=== PATIENT | female | born 1990 | race Hispanic/Latino ===

== ENCOUNTER 2018-12-31 10:04 | Emergency (ER) | payer MEDICARE ==
--- NOTE | 2018-12-31 10:51 | Emergency Department Report ---
ED Chest Pain HPI - General Chief Complaint: Chest Pain Stated Complaint: CHEST PAIN Time Seen by Provider: 12/31/18 10:31 Source: patient, EMS (EMS notes not available at time of chart dictation), RN notes reviewed, old records reviewed Mode of arrival: Stretcher Limitations: Other (patient developmentally delayed. The patient is a poor historian) - History of Present Illness Initial Comments: This is a 28-year-old female. This patient is not known to this provider previously. As per enclosed documentation, her past medical history includes developmental delay, suicidality, ADHD, bipolar Patient was brought into another hospital yesterday, [facility], for suicidality, and was medically cleared for psychiatric placement. Today, the patient complains of central chest wall pain, that started approximately 2 hours ago, and does not endorse vomiting, diaphoresis or exertional shortness of breath. The patient also endorses concomitant left upper extremity paresthesia. She does not endorse weakness. She does not know if she has a documented history of angina. She does not know who her primary care doctor is. She does not know if she's taken aspirin within the past 7 days. She does not know the details of her past family medical history. She states she is not . She indicates she is not taking oral contr aceptives. The patient states no recent travel, surgeries, or periods of immobilization. The chest wall pain has been constant for the past 2 hours, does not radiate anywhere, increases with palpation, and decreases with rest. MD Complaint: chest pain -: Gradual Onset: during rest Pain Location: substernal, left chest Pain Radiation: other Quality: other Improves With: other Worsens With: other Aspirin use within the Past 7 Days: (0) No - Related Data Allergies Allergy/AdvReac Type Severity Reaction Status Date / Time No Known Allergies Allergy Unverified 12/31/18 10:08 Heart Score - HEART Score History: Slightly suspicious EKG: Non-specific Age: < 45 Risk factors: No known risk factors Troponin: < normal limit HEART Score: 1 ED Review of Systems ROS: Stated complaint: CHEST PAIN Other details as noted in HPI Constitutional: denies: fever Eyes: denies: eye discharge ENT: denies: epistaxis Respiratory: denies: wheezing Cardiovascular: chest pain Gastrointestinal: denies: vomiting Genitourinary: dysuria (endorses dysuria, however, urinalysis performed yesterday is unremarkable) Musculoskeletal: myalgia Skin: denies: lesions Neurological: paresthesias Psychiatric: anxiety. denies: suicidal thoughts ED Physical Exam - General Limitations: Other (developmentally delayed, poor historian) General appearance: alert, in no apparent distress, obese, other (during the history and physical, the patient appears to be yawning and does not appear to be in any acute distress) - Head Head exam: Present: atraumatic, normocephalic - Eye Eye exam: Present: normal appearance, EOMI. Absent: nystagmus - ENT ENT exam: Present: normal exam, normal orophraynx, mucous membranes moist, normal external ear exam - Neck Neck exam: Present: normal inspection, full ROM. Absent: tenderness, meningismus - Respiratory Respiratory exam: Present: normal lung sounds bilaterally, chest wall tenderness, other (chaperoned by nurse Shirlene Brar). Absent: respiratory distress, wheezes, rales, rhonchi, stridor - Cardiovascular Cardiovascular Exam: Present: regular rate, normal rhythm, normal heart sounds. Absent: bradycardia, tachycardia, irregular rhythm, systolic murmur, diastolic murmur, rubs, gallop - GI/Abdominal GI/Abdominal exam: Present: soft. Absent: distended, tenderness, guarding, rebound, rigid, pulsatile mass - Extremities Exam Extremities exam: Present: normal inspection, full ROM, other (2+ pulses noted in the bilateral upper, lower extremities. There is no long bony tenderness. The pelvis is stable. Muscular compartments are soft. There is no redness, pus, streaking or crepitus noted.). Absent: pedal edema, joint swelling, calf tenderness - Back Exam Back exam: Present: normal inspection, full ROM. Absent: tenderness, CVA tenderness (R), CVA tenderness (L), paraspinal tenderness, vertebral tenderness - Neurological Exam Neurological exam: Present: alert, other (Extraocular movements are intact bi laterally. There is no facial droop. The tongue is midline. Patient speaking in full complete sentences. There is no dysphonia. Hearing is grossly intact bilaterally. Shoulder shrug is intact bilaterally. 5/5 strength bilateral upper, lower extremities. Sensation is intact to light touch bilateral upper, lower extremities.). Absent: motor sensory deficit - Psychiatric Psychiatric exam: Present: flat affect. Absent: suicidal ideation - Skin Skin exam: Present: warm, dry, intact, normal color. Absent: rash ED Course Vital Signs 12/31/18 12/31/18 12/31/18 10:30 10:45 10:50 Temperature 98.5 F Pulse Rate 88 91 H 68 Respiratory 22 28 H 20 Rate Blood Pressure 102/53 107/50 Blood Pressure 110/62 [Left] O2 Sat by Pulse 93 95 100 Oximetry 12/31/18 12/31/18 12/31/18 11:15 11:30 11:51 Temperature 98.5 F Pulse Rate 84 85 68 Respiratory 22 26 H Rate Blood Pressure 103/48 100/47 Blood Pressure [Left] O2 Sat by Pulse 95 97 100 Oximetry 12/31/18 11:57 Temperature Pulse Rate Respiratory 20 Rate Blood Pressure Blood Pressure [Left] O2 Sat by Pulse 98 Oximetry - Reevaluation(s) Reevaluation #1: 12/31/18 10:50 Differential diagnosis, including not limited to: GERD, gastritis, costochondritis, pneumonia, malingering, secondary gain, acute coronary syndrome, myocarditis, pericarditis Assessment and plan: 28-year-old female who is not febrile, not tachycardic, not hypoxic, not tachypneic, with reproducible chest wall pain. Patient at low risk for major risk cardiac event, as per current objective screening tools. We will check EKG 2, troponin 2, screening laboratory studies. Of note, patient medically cleared at another hospital, appropriately so, within the past 48 hours. The patient does not appear to be in any acute distress. This hospital has a policy whereby patients who are at low risk for major adverse cardiac event may follow-up with outpatient cardiology for expedited wrist medication. Therefore, we will place the patient in this protocol assuming initial diagnostics are unremarkable. Reevaluation #2: 12/31/18 13:20 Troponin is negative 2. Repeat EKG not consistent with ST elevation myocardial infarction. X-ray of the chest is unremarkable. Patient no acute distress. She may follow up with outpatient cardiology. Reevaluation #3: 12/31/18 13:29 EKG #2 demonstrates nonspecific QRS deflections, changed from a prior EKG. A th ird EKG is repeated, special attention placed on lead application, the third EKG is unchanged from the first EKG. EKG #2 is likely an error secondary to incorrectly placed leads. Staff have been appropriately educated. JANETT score - Janett Score Age > 65: (0) No Aspirin use within the Past 7 Days: (0) No 3 or more CAD Risk Factors: (0) No 2 or more Angina events in past 24 hrs: (0) No Known CAD with more than 50% Stenosis: (0) No Elevated Cardiac Markers: (0) No ST Deviation Greater than 0.5mm: (0) No JANETT Score: 0 ED Medical Decision Making - Lab Data Result diagrams: 12/31/18 11:04 - EKG Data -: EKG Interpreted by Me EKG shows normal: sinus rhythm Rate: normal - EKG Data When compared to previous EKG there are: previous EKG unavailable 12/31/18 10:52 There is no prior EKG available for comparison. This is a normal sinus rhythm, 87 beats per minute, QTC 450 ms, borderline high left ventricular voltage, there is low voltage in the lateral leads, the EKG is abnormal, there is no prior for comparison, the EKG is not consistent with ST elevation myocardial infarction. - Radiology Data Radiology results: pending Critical care attestation.: If time is entered above; I have spent that time in minutes in the direct care of this critically ill patient, excluding procedure time. ED Disposition Clinical Impression: Chest wall pain Disposition: DC/TX-65 PSY HOSP/PSY UNIT Is pt being admited?: No Does the pt Need Aspirin: No Condition: Stable Additional Instructions: Rest, avoid heavy lifting, and avoid strenuous physical activities. Patient may alternate heat packs and ice packs as needed for pain. Recommend patient follow up with any of the listed cardiology groups within the next 3-5 days for complaint of chest wall pain. Return to the emergency room with projectile vomiting, change in mental status, confusion, inability to tolerate liquid feeds, new, worsening or different symptoms not present on the initial emergency room evaluation. Referrals: ROXY BRISCOE MD [Staff Physician] - 3-5 Days [facility] [Provider Group] - 3-5 Days
[2018-12-31 11:45] LABS: INR 0.97 (0.87-1.13)
[2018-12-31 11:58] LABS: BUN/Creatinine Ratio 16; Blood Urea Nitrogen 8 mg/dL (7-17); Calcium 9.4 mg/dL (8.4-10.2); Hemolysis Index 6
[2018-12-31] MEDS ORDERED: PEPCID PO ONE (12:11)
[2018-12-31] MEDS ORDERED: IBUPROFEN PO ONE (12:11)
--- NOTE | 2018-12-31 12:48 | XRay Report ---
CHEST 1 VIEW INDICATION / CLINICAL INFORMATION: chest wall pain. COMPARISON: None available. FINDINGS: SUPPORT DEVICES: None. HEART / MEDIASTINUM: No significant abnormality. LUNGS / PLEURA: No significant pulmonary or pleural abnormality. No pneumothorax. ADDITIONAL FINDINGS: No significant additional findings. IMPRESSION: 1. No acute findings. Signer Name: Addy Wilson MD Signed: 12/31/2018 12:43 PM Workstation Name: [id number]
[2018-12-31 19:29] VITALS: BP 112/58
== END 2018-12-31 19:28 ==
LOC: ED 10:04
DX: R07.2 Precordial pain (principal); F31.9 Bipolar disorder, unspecified; F41.9 Anxiety disorder, unspecified
CPT/HCPCS: 36415; 71045; 80048; 80164; 80320; 82550; 83735; 84484; 84702; 85610; 93005; 93010; 99284; G0480

== ENCOUNTER 2019-04-02 14:50 | Emergency (ER) | payer OTHER, MEDICARE ==
[2019-04-02] MEDS ORDERED: MORPHINE 4 MG/1 ML INJ IV ONE (18:21)
[2019-04-02] MEDS ORDERED: ONDANSETRON 4 MG/2 ML INJ IV ONE (18:21)
--- NOTE | 2019-04-02 18:24 | Emergency Department Report ---
ED General Adult HPI - General Chief complaint: Abdominal Pain Stated complaint: ABD PAIN Time Seen by Provider: 04/02/19 17:24 Source: patient, EMS (EMS documentation not available at the time of chart dictation), RN notes reviewed, old records reviewed Mode of arrival: Stretcher Limitations: Other (patient is developmentally delayed) - History of Present Illness Initial comments: The patient is a 29-year-old female. I have evaluated this patient in the past. Her past history includes developmental delay, suicidality, ADHD and bipolar disorder. The patient presents to the ER with a complaint of 3 days suprapubic and right lower quadrant abdominal pain. She describes it as sharp. She indicates it increases with palpation. It decreases with rest. There is nausea. No vomiting. No urinary symptoms. No vaginal bleeding. States she is a virgin. No additional injuries or complaints at this time. She indicates she's not had pain like this in the past. -: Gradual Location: abdomen Radiation: non-radiation Quality: aching Consistency: intermittent Improves with: rest Worsens with: movement - Related Data Previous Rx's Medication Instructions Recorded Last Taken Type Acetaminophen [Non-Aspirin Extra 500 mg PO Q6HR PRN #30 tablet 04/02/19 Unknown Rx Strength] Ainsley Root [Ainsley] 250 mg PO QID PRN #30 capsule 04/02/19 Unknown Rx Ibuprofen [Motrin] 600 mg PO Q8H PRN #30 tablet 04/02/19 Unknown Rx Ondansetron [Zofran Odt] 4 mg PO Q8HR PRN #20 tab.rapdis 04/02/19 Unknown Rx Allergies Allergy/AdvReac Type Severity Reaction Status Date / Time No Known Allergies Allergy Unverified 12/31/18 10:08 ED Review of Systems ROS: Stated complaint: ABD PAIN Other details as noted in HPI Constitutional: denies: fever Eyes: denies: eye discharge ENT: denies: congestion Respiratory: denies: wheezing Cardiovascular: denies: syncope Gastrointestinal: abdominal pain, nausea Genitourinary: denies: dysuria Musculoskeletal: denies: back pain Skin: denies: lesions Neurological: denies: weakness Hematological/Lymphatic: denies: easy bleeding ED Past Medical Hx - Past Medical History Hx Psychiatric Treatment: Yes (SI with previous attempt, depression, Asperger's syndrome, bipolar) Additional medical history: MODERATE MRDonnie RAPED AT ALF. [facility]A. [facility] ONDRITIS - Social History Smoking Status: Current Every Day Smoker Substance Use Type: None - Medications Home Medications: Home Medications Medication Instructions Recorded Confirmed Last Taken Type Acetaminophen [Non-Aspirin Extra 500 mg PO Q6HR PRN #30 tablet 04/02/19 Unknown Rx Strength] Ainsley Root [Ainsley] 250 mg PO QID PRN #30 capsule 04/02/19 Unknown Rx Ibuprofen [Motrin] 600 mg PO Q8H PRN #30 tablet 04/02/19 Unknown Rx Ondansetron [Zofran Odt] 4 mg PO Q8HR PRN #20 tab.rapdis 04/02/19 Unknown Rx ED Physical Exam - General Limitations: Other (patient developmentally delayed) General appearance: alert, in no apparent distress - Head Head exam: Present: atraumatic, normocephalic - Eye Eye exam: Present: normal appearance, EOMI. Absent: nystagmus - ENT ENT exam: Present: normal exam, normal orophraynx, mucous membranes moist, normal external ear exam - Neck Neck exam: Present: normal inspection, full ROM. Absent: tenderness, meningismus - Respiratory Respiratory exam: Present: normal lung sounds bilaterally. Absent: respiratory distress - Cardiovascular Cardiovascular Exam: Present: regular rate, normal rhythm, normal heart sounds. Absent: bradycardia, tachycardia, irregular rhythm, systolic murmur, diastolic murmur, rubs, gallop - GI/Abdominal GI/Abdominal exam: Present: soft, tenderness. Absent: distended, guarding, rebound, rigid, pulsatile mass - Extremities Exam Extremities exam: Present: normal inspection, full ROM, other (2+ pulses noted in the bilateral upper, lower extremities. There is no long bony tenderness. The muscular compartments are soft.). Absent: pedal edema, calf tenderness - Back Exam Back exam: Present: normal inspection, full ROM. Absent: tenderness, CVA tend erness (R), CVA tenderness (L), paraspinal tenderness, vertebral tenderness - Neurological Exam Neurological exam: Present: alert, other (there is no facial droop. The tongue is midline. Extraocular movements are intact bilaterally. There is 5 out of 5 strength bilateral upper and lower extremities. Sensation is intact to light touch bilateral upper and lower extremities.) - Psychiatric Psychiatric exam: Present: anxious - Skin Skin exam: Present: warm, dry, intact, normal color. Absent: rash ED Course Vital Signs 04/02/19 04/02/19 04/02/19 15:18 15:36 19:11 Temperature 98.7 F 99 F Pulse Rate 96 H 84 Respiratory 16 17 18 Rate Blood Pressure 103/47 102/36 [Right] O2 Sat by Pulse 95 98 Oximetry - Reevaluation(s) Reevaluation #1: 04/02/19 20:34 Differential diagnosis, including but not limited to: Appendicitis, colitis, renal colic, urinary tract infection, ovarian cyst, constipation Assessment and plan: 29-year-old female with developmental delay, currently on a psychiatric hold, sent to the emergency room from a psychiatric facility for evaluation of abdominal pain. She is afebrile with reassuring vital signs found to be tender in her lower abdominal region. Screening laboratory studies, CT scan, ultrasound pelvis ordered. Discussed this plan of care the patient who verbalizes understanding, and was in agreement with this. Reevaluation #2: 04/02/19 23:15 Belly soft on repeat examination. Patient sleeping comfortably and in no acute distress at this time. CT scan negative for acute surgical findings. A transabdominal ultrasound performed, ovaries not visualized. Patient not sexually active, therefore, not able to tolerate intracavitary study. However, at this point in time, based off of her exam, CT scan, objective evidence, symptomatically ovarian cyst, ovarian torsion are unlikely. ED Medical Decision Making - Lab Data Result diagrams: 04/02/19 18:44 04/02/19 18:44 Vital Signs 04/02/19 04/02/19 04/02/19 15:18 15:36 19:11 Temperature 98.7 F 99 F Pulse Rate 96 H 84 Respiratory 16 17 18 Rate Blood Pressure 103/47 102/36 [Right] O2 Sat by Pulse 95 98 Oximetry Lab Results 04/02/19 04/02/19 04/02/19 Range/Units 18:44 18:44 18:44 WBC 6.5 (4.5-11.0) K/mm3 RBC 3.53 L (3.65-5.03) M/mm3 Hgb 11.8 (10.1-14.3) gm/dl Hct 34.7 (30.3-42.9) % MCV 98 H (79-97) fl MCH 33 H (28-32) pg MCHC 34 (30-34) % RDW 13.7 (13.2-15.2) % Plt Count 235 (140-440) K/mm3 Lymph % (Auto) 46.3 H (13.4-35.0) % Perkins % (Auto) 6.5 (0.0-7.3) % Eos % (Auto) 0.7 (0.0-4.3) % Baso % (Auto) 0.3 (0.0-1.8) % Lymph # 3.0 (1.2-5.4) K/mm3 Perkins # 0.4 (0.0-0.8) K/mm3 Eos # 0.0 (0.0-0.4) K/mm3 Baso # 0.0 (0.0-0.1) K/mm3 Seg Neutrophils % 46.2 (40.0-70.0) % Seg Neutrophils # 3.0 (1.8-7.7) K/mm3 PT 12.3 (12.2-14.9) Sec. INR 0.92 (0.87-1.13) Sodium 140 (137-145) mmol/L Potassium 4.2 (3.6-5.0) mmol/L Chloride 102.9 (98-107) mmol/L Carbon Dioxide 23 (22-30) mmol/L Anion Gap 18 mmol/L BUN 6 L (7-17) mg/dL Creatinine 0.4 L (0.7-1.2) mg/dL Estimated GFR > 60 ml/min BUN/Creatinine Ratio 15 % Glucose 108 H (65-100) mg/dL Calcium 8.8 (8.4-10.2) mg/dL Magnesium (1.7-2.3) mg/dL Total Bilirubin < 0.20 (0.1-1.2) mg/dL Direct Bilirubin < 0.2 (0-0.2) mg/dL Indirect Bilirubin 0.0 mg/dL AST 16 (5-40) units/L ALT 15 (7-56) units/L Alkaline Phosphatase 38 (35-129) units/L Total Creatine Kinase (30-135) units/L Total Protein 5.9 L (6.3-8.2) g/dL Albumin 4.0 (3.9-5) g/dL Albumin/Globulin Ratio 2.1 % Lipase 90 H (13-60) units/L HCG, Quant (0-4) mIU/mL Urine Color (Yellow) Urine Turbidity (Clear) Urine pH (5.0-7.0) Ur Specific [place] (1.003-1.030) Urine Protein (Negative) mg/dL Urine Glucose (UA) (Negative) mg/dL Urine Ketones (Negative) mg/dL Urine Blood (Negative) Urine Nitrite (Negative) Urine Bilirubin (Negative) Urine Urobilinogen (<2.0) mg/dL Ur Leukocyte Esterase (Negative) Urine WBC (Auto) (0.0-6.0) /HPF Urine RBC (Auto) (0.0-6.0) /HPF Urine Bacteria (Auto) (Negative) /HPF Urine Mucus /HPF Acetaminophen (10.0-30.0) ug/mL 04/02/19 04/02/19 04/02/19 Range/Units 18:44 18:44 18:44 WBC (4.5-11.0) K/mm3 RBC (3.65-5.03) M/mm3 Hgb (10.1-14.3) gm/dl Hct (30.3-42.9) % MCV (79-97) fl MCH (28-32) pg MCHC (30-34) % RDW (13.2-15.2) % Plt Count (140-440) K/mm3 Lymph % (Auto) (13.4-35.0) % Perkins % (Auto) (0.0-7.3) % Eos % (Auto) (0.0-4.3) % Baso % (Auto) (0.0-1.8) % Lymph # (1.2-5.4) K/mm3 Perkins # (0.0-0.8) K/mm3 Eos # (0.0-0.4) K/mm3 Baso # (0.0-0.1) K/mm3 Seg Neutrophils % (40.0-70.0) % Seg Neutrophils # (1.8-7.7) K/mm3 PT (12.2-14.9) Sec. INR (0.87-1.13) Sodium (137-145) mmol/L Potassium (3.6-5.0) mmol/L Chloride (98-107) mmol/L Carbon Dioxide (22-30) mmol/L Anion Gap mmol/L BUN (7-17) mg/dL Creatinine (0.7-1.2) mg/dL Estimated GFR ml/min BUN/Creatinine Ratio % Glucose (65-100) mg/dL Calcium (8.4-10.2) mg/dL Magnesium 1.90 (1.7-2.3) mg/dL Total Bilirubin (0.1-1.2) mg/dL Direct Bilirubin (0-0.2) mg/dL Indirect Bilirubin mg/dL AST (5-40) units/L ALT (7-56) units/L Alkaline Phosphatase (35-129) units/L Total Creatine Kinase 63 (30-135) units/L Total Protein (6.3-8.2) g/dL Albumin (3.9-5) g/dL Albumin/Globulin Ratio % Lipase (13-60) units/L HCG, Quant < 2 (0-4) mIU/mL Urine Color (Yellow) Urine Turbidity (Clear) Urine pH (5.0-7.0) Ur Specific [place] (1.003-1.030) Urine Protein (Negative) mg/dL Urine Glucose (UA) (Negative) mg/dL Urine Ketones (Negative) mg/dL Urine Blood (Negative) Urine Nitrite (Negative) Urine Bilirubin (Negative) Urine Urobilinogen (<2.0) mg/dL Ur Leukocyte Esterase (Negative) Urine WBC (Auto) (0.0-6.0) /HPF Urine RBC (Auto) (0.0-6.0) /HPF Urine Bacteria (Auto) (Negative) /HPF Urine Mucus /HPF Acetaminophen < 5.0 L (10.0-30.0) ug/mL 04/02/19 Range/Units Unknown WBC (4.5-11.0) K/mm3 RBC (3.65-5.03) M/mm3 Hgb (10.1-14.3) gm/dl Hct (30.3-42.9) % MCV (79-97) fl MCH (28-32) pg MCHC (30-34) % RDW (13.2-15.2) % Plt Count (140-440) K/mm3 Lymph % (Auto) (13.4-35.0) % Perkins % (Auto) (0.0-7.3) % Eos % (Auto) (0.0-4.3) % Baso % (Auto) (0.0-1.8) % Lymph # (1.2-5.4) K/mm3 Perkins # (0.0-0.8) K/mm3 Eos # (0.0-0.4) K/mm3 Baso # (0.0-0.1) K/mm3 Seg Neutrophils % (40.0-70.0) % Seg Neutrophils # (1.8-7.7) K/mm3 PT (12.2-14.9) Sec. INR (0.87-1.13) Sodium (137-145) mmol/L Potassium (3.6-5.0) mmol/L Chloride (98-107) mmol/L Carbon Dioxide (22-30) mmol/L Anion Gap mmol/L BUN (7-17) mg/dL Creatinine (0.7-1.2) mg/dL Estimated GFR ml/min BUN/Creatinine Ratio % Glucose (65-100) mg/dL Calcium (8.4-10.2) mg/dL Magnesium (1.7-2.3) mg/dL Total Bilirubin (0.1-1.2) mg/dL Direct Bilirubin (0-0.2) mg/dL Indirect Bilirubin mg/dL AST (5-40) units/L ALT (7-56) units/L Alkaline Phosphatase (35-129) units/L Total Creatine Kinase (30-135) units/L Total Protein (6.3-8.2) g/dL Albumin (3.9-5) g/dL Albumin/Globulin Ratio % Lipase (13-60) units/L HCG, Quant (0-4) mIU/mL Urine Color Straw (Yellow) Urine Turbidity Clear (Clear) Urine pH 7.0 (5.0-7.0) Ur Specific [place] 1.009 (1.003-1.030) Urine Protein <15 mg/dl (Negative) mg/dL Urine Glucose (UA) Neg (Negative) mg/dL Urine Ketones 20 (Negative) mg/dL Urine Blood Neg (Negative) Urine Nitrite Neg (Negative) Urine Bilirubin Neg (Negative) Urine Urobilinogen < 2.0 (<2.0) mg/dL Ur Leukocyte Esterase Neg (Negative) Urine WBC (Auto) 2.0 (0.0-6.0) /HPF Urine RBC (Auto) 1.0 (0.0-6.0) /HPF Urine Bacteria (Auto) 1+ (Negative) /HPF Urine Mucus Few /HPF Acetaminophen (10.0-30.0) ug/mL - Radiology Data Radiology results: pending, report reviewed, image reviewed Print Report Referring Physician: DIAMANTE RANDALL Patient Name: SERVANDO KELLEY Date of : 1990 Sex: Female Report Date: 2019-04-02 Report Status: Finalized Findings [facility] [address] [place] [address] Cat Scan Report Signed Patient: SERVANDO KELLEY MR#: [id number] : 1990 Acct:A0 [id number] Age/Sex: 29 / F ADM Date: 04/02/19 Loc: ED Attending Dr: Ordering Physician: DIAMANTE RANDALL MD Date of Service: 04/02/19 Procedure(s): CT abdomen pelvis w con Accession Number(s): [id number] cc: DIAMANTE RANDALL MD CT abdomen pelvis w con INDICATION / CLINICAL INFORMATION: MAIN: abd pain rlq pain- 100ML OMNI 350. TECHNIQUE: All CT scans at this location are performed using CT dose reduction for ALARA by means of automated exposure control. COMPARISON: None available. FINDINGS: No free fluid is seen in the abdomen. Hepatomegaly is present with diffuse fatty infiltration. No focal hepatic abnormality is identified. The spleen, kidneys, pancreas, adrenal glands and great vessels are normal. In the pelvis, no free fluid is seen. No enlarged lymph nodes are identified. The bladder is normal. The appendix is normal. No significant skeletal abnormality is seen. IMPRESSION: Hepatomegaly with diffuse fatty infiltration but without focal hepatic abnormality. No acute findings Signer Name: Manoj Mckeon MD FACR Signed: 04/02/2019 9:49 PM Workstation Name: [id number] Transcribed By: MS Dictated By: Manoj Mckeon MD Electronically Authenticated By: Manoj Mckeon MD Signed Date/Time: 04/02/19 8049 Critical care attestation.: If time is entered above; I have spent that time in minutes in the direct care of this critically ill patient, excluding procedure time. ED Disposition Clinical Impression: Right sided abdominal pain Disposition: DC/TX-65 PSY HOSP/PSY UNIT Is pt being admited?: No Does the pt Need Aspirin: No Condition: Stable Instructions: Abdominal Pain (ED) Additional Instructions: Do not take metformin medication for the next 2 days,if patient takes this medication. Patient may take [id number] Motrin, 400 mg by mouth, every 6 hours, with food, as needed for pain. Drink plenty of fluids, and follow-up with a primary care physician within the next 2 days for repeat checkup and/or evaluation. Return to the emergency room right away with new, worsening or different symptoms, or symptoms not present on initial emergency room evaluation. CT scan abdomen and pelvis and ultrasound today did not demonstrate any emergent findings, however, incidental nonemergent findings were noted, which should be followed up by a primary physician within the next 2-3 weeks. Please have a primary care doctor contact the medical records department to obtain laboratory studies, and imaging studies to follow up on nonemergent results. For the time being, patient should avoid alcohol consumption. Referrals: MONIE MANNING MD [Primary Care Provider] - 3-5 Days
[2019-04-02 19:03] LABS: Basophils % (Auto) 0.3 % (0.0-1.8); Eosinophils % (Auto) 0.7 % (0.0-4.3); Hematocrit 34.7 % (30.3-42.9); Hemoglobin 11.8 gm/dl (10.1-14.3); Lymphocytes % (Auto) 46.3 % (13.4-35.0); Mean Corpuscular HGB Conc 34 % (30-34); Mean Corpuscular Volume 98 fl (79-97); Monocytes # (Auto) 0.4 K/mm3 (0.0-0.8); Monocytes % (Auto) 6.5 % (0.0-7.3); Platelet Count 235 K/mm3 (140-440); Red Blood Count 3.53 M/mm3 (3.65-5.03); Red Cell Distribution Width 13.7 % (13.2-15.2)
[2019-04-02 19:12] LABS: INR 0.92 (0.87-1.13)
[2019-04-02 19:52] LABS: Alanine Aminotransferase 15 units/L (7-56); BUN/Creatinine Ratio 15; Blood Urea Nitrogen 6 mg/dL (7-17); Calcium 8.8 mg/dL (8.4-10.2); Hemolysis Index 4
[2019-04-02 19:53] LABS: Bilirubin,Direct < 0.2 mg/dL (0-0.2)
[2019-04-02 20:06] LABS: Bacteria,Urine 1+ /HPF (Negative); Bilirubin,Urine NEG (Negative); Blood,Urine NEG (Negative); Color,Urine Straw (Yellow); Mucus,Urine FEW /HPF; Protein,Urine <15 mg/dL mg/dL (Negative); Urobilinogen,Urine < 2.0 mg/dL (<2.0)
--- NOTE | 2019-04-02 21:54 | Cat Scan Report ---
CT abdomen pelvis w con INDICATION / CLINICAL INFORMATION: MAIN: abd pain rlq pain- 100ML OMNI 350. TECHNIQUE: All CT scans at this location are performed using CT dose reduction for ALARA by means of automated e xposure control. COMPARISON: None available. FINDINGS: No free fluid is seen in the abdomen. Hepatomegaly is present with diffuse fatty infiltration. No foc al hepatic abnormality is identified. The spleen, kidneys, pancreas, adrenal glands and great vessels are normal. In the pelvis, no free fluid is seen. No enlarged lymph nodes are identified. The bladder is normal. The appendix is normal. No significant skeletal abnormality is seen. IMPRESSION: Hepatomegaly with diffuse fatty infiltration but without focal hepatic abnormality. No acute findings Signer Name: Manoj Mckeon MD FACR Signed: 04/02/2019 9:49 PM Workstation Name: [id number]
--- NOTE | 2019-04-02 23:25 | Ultrasound Report ---
Ultrasound transvaginal pelvis INDICATION: Right lower pelvic pain FINDINGS: Uterus measures 12 x 3 x 3 cm with endometrial thickness of about 13 mm. Neither adnexa was well identified secondary to overlying bowel gas. No significant free pelvic fluid. IMPRESSION: Unremarkable uterus. The adnexa were poorly identified secondary to overlying bowel gas. Signer Name: Addy Wilson MD Signed: 04/02/2019 11:20 PM Workstation Name: [id number]
[2019-04-03 00:12] VITALS: BP 98/51
[2019-04-03] MEDS ORDERED: ACETAMINOPHEN 325 MG TAB ONE (00:51)
[2019-04-03] MEDS ORDERED: ACETAMINOPHEN 325 MG TAB PO ONE (00:51)
== END 2019-04-03 01:10 ==
LOC: ED 14:50
DX: R10.9 Unspecified abdominal pain (principal); F17.200 Nicotine dependence, unspecified, uncomplicated
CPT/HCPCS: 36415; 74177; 76830; 80048; 80076; 81001; 82550; 83690; 83735; 84702; 85025; 85610; 93975; 96374; 96375; 99285; J2270; J2405; Q9967; 76856; 80320; G0480